=== PATIENT | female | born 1950 | race Caucasian/White ===

== ENCOUNTER 2020-09-20 07:03 | Day surgery (SDC) | payer OTHER ==
[~2020-09-20] VITALS: Ht 152.4 cm; Wt 65.9 kg
[~2020-09-20 07:03] MED LIST: AMLO5 PO; C COMPLEX1000 M1 PO; CALCIUM + D SO1 EACH; FAMO20; FISH1000; GLUC500; HYDCHL12.5; L-TYROSINE500 MG; LISHYD1012; LISI5; MAGCIT300; MULT50L; PANT40; Vitamin B Comple1 EA
--- NOTE | 2020-09-20 08:44 | NUR ---
09/20/20 0844 Alissa Nguyen History, Chart, Medications and Allergies reviewed before start of procedure. Patient confirms NPO status and agrees with scheduled surgery. 3-LEAD EKG REVIEWED WITH PHYSICIAN PRIOR TO START OF PROCEDURE. MONITOR INTACT WITH CONTINUOUS PULSE OXIMETRY AND INTERMITTENT BP. PATIENT DETERMINED TO BE ASA APPROPRIATE FOR PROPOFOL SEDATION PRIOR TO START OF PROCEDURE BY DR. Gilbert Block Placed AND REMOVED AT END OF CASE.
--- NOTE | 2020-09-20 09:47 | NUR ---
Discharge instructions reviewed with patient. Patient verbalizes understanding. Copy given to patient to take home. pt tolerating po fluids/solids
--- NOTE | 2020-09-20 10:01 | NUR ---
Discharged via wheelchair to private car for ride home.
== END 2020-09-20 10:02 | disposition home or self-care (01) ==
LOC: ORSCMMR 07:03 → ORD 08:30 → ORSCMMR 08:30
DX: R13.14 Dysphagia, pharyngoesophageal phase (principal); K21.9 Gastro-esophageal reflux disease without esophagitis; Z12.11 Encounter for screening for malignant neoplasm of colon; D12.3 Benign neoplasm of transverse colon; I10 Essential (primary) hypertension; Z79.899 Other long term (current) drug therapy
CPT/HCPCS: 88305; 88342; A9270; C1726; J0461; J2250; J2704; J7120

== ENCOUNTER 2021-09-16 05:51 | Emergency (ER) | payer OTHER ==
[~2021-09-16] VITALS: Ht 152.4 cm; Wt 64.9 kg
[2021-09-16 06:24] LABS: BASOPHILS ABSOLUTE AUTO 0.05 K/mm3 (0.00-0.23); BASOPHILS PERCENT AUTO 1 % (0-2); EOSINOPHILS ABSOLUTE AUTO 0.17 K/mm3 (0.00-0.68); EOSINOPHILS PERCENT AUTO 3 % (0-6); Hematocrit 46.3 % (33.0-51.0); Hemoglobin 15.6 g/dL (11.5-16.0); IMMATURE GRAN ABSOLUTE AUTO 0.04 K/mm3 (0.00-0.10); IMMATURE GRAN PERCENT AUTO 1 % (0-1); LYMPHOCYTES PERCENT AUTO 24 % (21-46); MONOCYTES ABSOLUTE AUTO 0.76 K/mm3 (0.16-1.47); MONOCYTES PERCENT AUTO 12 % (4-13); Mean Corpuscular HGB Conc 33.7 g/dL (31.5-36.5); Mean Corpuscular Volume 89 fL (80-100); Mean Platelet Volume 9.6 fL (9.1-12.4); NEUTROPHILS PERCENT AUTO 60 % (41-73); Platelet Count 297 K/mm3 (150-400); RDW Coefficient Variation 11.9 % (11.7-14.2); RDW Standard Deviation 38.7 fL (35.1-46.3); White Blood Cell Count 6.32 K/mm3 (4.00-11.30)
[2021-09-16 06:47] LABS: Albumin, Blood 3.5 g/dL (3.4-5.0); Albumin/Globulin Ratio 0.7 (0.8-1.8); Bilirubin, Total 0.5 mg/dL (0.1-1.0); Bun/Creatinine Ratio 11.5 (12.0-20.0); Calcium, Blood 9.6 mg/dL (8.5-10.1); Creatinine, Blood 0.61 mg/dL (0.40-1.00); Potassium, Blood 4.1 mmol/L (3.5-5.5); Total Protein, Blood 8.5 g/dL (6.4-8.2)
== END 2021-09-16 08:57 | disposition home or self-care (01) ==
LOC: ER 05:51
PROVIDERS: Student in an Organized Health Care Education/Training Program
DX: R07.89 Other chest pain (principal); I10 Essential (primary) hypertension; K21.9 Gastro-esophageal reflux disease without esophagitis; Z88.1 Allergy status to other antibiotic agents; Z88.0 Allergy status to penicillin; Z79.899 Other long term (current) drug therapy
CPT/HCPCS: 36415; 71045; 80053; 84484; 85025; 93005; 93010

== ENCOUNTER 2022-01-17 08:18 | Day surgery (SDC) | payer OTHER ==
[~2022-01-17] VITALS: Ht 152.4 cm; Wt 64.1 kg
[2022-01-17] MEDS ORDERED: CALCIUM 250-D1 EAC1 (08:42)
[2022-01-17] MEDS ORDERED: MAGNESIUM OXID500 MG (08:43)
--- NOTE | 2022-01-17 10:52 | NUR ---
01/17/22 1052 Meghana Covington RN NOTICED SLIGHT BLUE TINGE ON FINGERS, PT STATED NORMAL FOR HER WHEN SHE HASN'T BEEN MOVING AROUND. WARM PACK PROVIDED AND PULSE OX IN RANGE. RN CHECKED WITH PRE-OP RN AND VERIFIED THAT FINGERS WERE SAME PRIOR TO PROCEDURE. COLOR IMPROVED FOLLOWING WARM PACK AND REMOVAL OF COBAN ON WRIST. PT ADVISED TO REMOVE COBAN FROM FORMER IV SITE 1 HR FOLLOWING REMOVAL OF IV. 1 GRAM TYLENOL GIVEN FOR PAIN PER DR CARRION ORDERS.
== END 2022-01-17 10:43 | disposition home or self-care (01) ==
LOC: ORSCSDS 08:18
PROVIDERS: Student in an Organized Health Care Education/Training Program
PROC: 08RJ3JZ Replacement of Right Lens with Synthetic Substitute, Percutaneous Approach (ICD-10-PCS; principal; 2022-01-17 09:45)
DX: H25.11 Age-related nuclear cataract, right eye (principal); H21.81 Floppy iris syndrome; I10 Essential (primary) hypertension; K21.9 Gastro-esophageal reflux disease without esophagitis; Z79.899 Other long term (current) drug therapy
CPT/HCPCS: A9270; J2001; J2250; J7040; V2632

== ENCOUNTER 2022-01-31 08:21 | Day surgery (SDC) | payer OTHER ==
[~2022-01-31] VITALS: Ht 152.4 cm; Wt 63.9 kg
[~2022-01-31 08:21] MED LIST changes: +CALCIUM 250-D1 EAC1; +MAGNESIUM OXID500 MG
[2022-01-31] MEDS ORDERED: MAGNESIUM OXID500 MG PO (08:45)
[2022-01-31] MEDS ORDERED: CIDAFLEX TABLE1 EAC1 PO (08:47)
== END 2022-01-31 10:04 | disposition home or self-care (01) ==
LOC: ORSCSDS 08:21
PROVIDERS: Student in an Organized Health Care Education/Training Program
PROC: 08RK3JZ Replacement of Left Lens with Synthetic Substitute, Percutaneous Approach (ICD-10-PCS; principal; 2022-01-31 09:45)
DX: H25.12 Age-related nuclear cataract, left eye (principal); H21.81 Floppy iris syndrome; I10 Essential (primary) hypertension; E03.9 Hypothyroidism, unspecified; K21.9 Gastro-esophageal reflux disease without esophagitis; Z79.899 Other long term (current) drug therapy
CPT/HCPCS: J2001; J2250; J3010; J7040; V2632

== ENCOUNTER → 2023-02-04 | Outpatient (CLI) | payer OTHER ==
[~2023-02-04] MED LIST changes: +CIDAFLEX TABLE1 EAC1 PO; +MAGNESIUM OXID500 MG PO
== END ==
LOC: LAB 10:54 → LAB SHORT 10:54
DX: R05.9 Cough, unspecified (principal)
CPT/HCPCS: 87807

== ENCOUNTER 2024-03-13 05:14 | Day surgery (SDC) | payer OTHER ==
[~2024-03-13] VITALS: Wt 61.6 kg
[~2024-03-13 05:14] MED LIST changes: -CALCIUM 250-D1 EAC1; +CALCIUM 250-D1 EAC1 PO
[2024-03-13] MEDS ORDERED: Tocilizumab 200 MG in NS 90 ML IV SCH (06:00)
[2024-03-13] MEDS ORDERED: DiphenhydrAMINE HCL 25 MG Cap PO SCH (07:00)
[2024-03-13] MEDS ORDERED: Acetaminophen 325 MG TABLET PO SCH (07:00)
[2024-03-13 09:10] VITALS: BP 147/87; BP 165/63
[2024-03-13] MEDS ORDERED: [UNRECOGNIZED DRUG - CODE] PO (10:24)
[2024-03-13] MEDS ORDERED: Echinacea400 MG PO (10:24)
[2024-03-13] MEDS ORDERED: SPIR25 PO (10:25)
[2024-03-13] MEDS ORDERED: MULVITA PO (10:25)
[2024-03-13] MEDS ORDERED: LOSA50 PO (10:25)
[2024-03-13] MEDS ORDERED: HYDSUL200 PO (10:28)
[2024-03-13] MEDS ORDERED: ACTEMRA IV (10:28)
== END 2024-03-13 10:39 | disposition home or self-care (01) ==
LOC: ATC 05:14
DX: M05.79 Rheumatoid arthritis with rheumatoid factor of multiple sites without organ or systems involvement (principal); M34.0 Progressive systemic sclerosis; K21.9 Gastro-esophageal reflux disease without esophagitis; Z79.899 Other long term (current) drug therapy
CPT/HCPCS: 96365; A9270; J3262

== ENCOUNTER 2024-04-10 02:39 | Day surgery (SDC) | payer OTHER ==
[~2024-04-10] VITALS: Wt 61.0 kg
[~2024-04-10 02:39] MED LIST changes: +ACTEMRA IV; +Echinacea400 MG PO; +HYDSUL200 PO; +LOSA50 PO; +MULVITA PO; +SPIR25 PO; +[UNRECOGNIZED DRUG - CODE] PO
[2024-04-10] MEDS ORDERED: Tocilizumab 200 MG in NS 90 ML IV SCH (06:00)
[2024-04-10 14:35] VITALS: BP 150/62
[2024-04-10] MEDS ORDERED: Acetaminophen 325 MG TABLET PO SCH (15:10)
== END 2024-04-10 16:23 | disposition home or self-care (01) ==
LOC: ATC 02:39
DX: M05.79 Rheumatoid arthritis with rheumatoid factor of multiple sites without organ or systems involvement (principal); M34.0 Progressive systemic sclerosis; K21.9 Gastro-esophageal reflux disease without esophagitis; M35.00 Sjogren syndrome, unspecified; D84.9 Immunodeficiency, unspecified; Z79.899 Other long term (current) drug therapy
CPT/HCPCS: 96365; A9270; J3262

== ENCOUNTER 2024-05-08 01:04 | Day surgery (SDC) | payer OTHER ==
[~2024-05-08] VITALS: Wt 60.8 kg
[2024-05-08] MEDS ORDERED: NS IV SCH (06:00)
[2024-05-08] MEDS ORDERED: TOCILIZUMAB IV SCH (06:00)
[2024-05-08] MEDS ORDERED: Acetaminophen 325 MG TABLET PO SCH (07:05)
[2024-05-08] MEDS ORDERED: DiphenhydrAMINE HCL 25 MG Cap PO SCH (07:05)
[2024-05-08 14:02] VITALS: BP 161/56
[2024-05-08] MEDS ORDERED: Tocilizumab 200 MG in NS 90 ML IV SCH (14:25)
== END 2024-05-08 15:57 | disposition home or self-care (01) ==
LOC: ATC 01:04
DX: M05.79 Rheumatoid arthritis with rheumatoid factor of multiple sites without organ or systems involvement (principal); M34.0 Progressive systemic sclerosis; K21.9 Gastro-esophageal reflux disease without esophagitis; M41.9 Scoliosis, unspecified
CPT/HCPCS: 96365; J3262

== ENCOUNTER 2024-07-03 02:26 | Day surgery (SDC) | payer OTHER ==
[~2024-07-03] VITALS: Wt 60.3 kg
[2024-07-03] MEDS ORDERED: NS IV SCH (06:00)
[2024-07-03] MEDS ORDERED: TOCILIZUMAB IV SCH (06:00)
[2024-07-03] MEDS ORDERED: Acetaminophen 325 MG TABLET PO SCH (06:50)
[2024-07-03] MEDS ORDERED: DiphenhydrAMINE HCL 25 MG Cap PO SCH (06:50)
[2024-07-03 10:01] VITALS: BP 133/53
== END 2024-07-03 11:40 | disposition home or self-care (01) ==
LOC: ATC 02:26
DX: M05.79 Rheumatoid arthritis with rheumatoid factor of multiple sites without organ or systems involvement (principal); M34.0 Progressive systemic sclerosis
CPT/HCPCS: 96365; J3262

== ENCOUNTER 2024-07-31 00:33 | Day surgery (SDC) | payer OTHER ==
[~2024-07-31] VITALS: Wt 61.6 kg
[2024-07-31] MEDS ORDERED: NS IV SCH (06:00)
[2024-07-31] MEDS ORDERED: TOCILIZUMAB IV SCH (06:00)
[2024-07-31] MEDS ORDERED: Acetaminophen 325 MG TABLET PO SCH (06:50)
[2024-07-31] MEDS ORDERED: DiphenhydrAMINE HCL 25 MG Cap PO SCH (06:50)
[2024-07-31 13:22] VITALS: BP 144/63
== END 2024-07-31 15:00 | disposition home or self-care (01) ==
LOC: ATC 00:33
DX: M05.79 Rheumatoid arthritis with rheumatoid factor of multiple sites without organ or systems involvement (principal); M34.0 Progressive systemic sclerosis; K21.9 Gastro-esophageal reflux disease without esophagitis; Z79.899 Other long term (current) drug therapy
CPT/HCPCS: 96365; J3262

== ENCOUNTER 2024-09-01 00:44 | Day surgery (SDC) | payer OTHER ==
[~2024-09-01] VITALS: Wt 60.0 kg
[2024-09-01] MEDS ORDERED: SODIUM CHLORIDE IV SCH ×2 (06:00→13:50)
[2024-09-01] MEDS ORDERED: TOCILIZUMAB IV SCH ×2 (06:00→13:50)
[2024-09-01 13:36] VITALS: BP 117/89
== END 2024-09-01 15:30 | disposition home or self-care (01) ==
LOC: ATC 00:44
DX: M05.79 Rheumatoid arthritis with rheumatoid factor of multiple sites without organ or systems involvement (principal); M34.0 Progressive systemic sclerosis; I73.00 Raynaud's syndrome without gangrene; K21.9 Gastro-esophageal reflux disease without esophagitis; Z79.52 Long term (current) use of systemic steroids
CPT/HCPCS: 96365; A9270; J3262

== ENCOUNTER 2024-10-16 03:24 | Day surgery (SDC) | payer OTHER ==
[~2024-10-16] VITALS: Wt 61.4 kg
[2024-10-16] MEDS ORDERED: TOCILIZUMAB IV SCH ×2 (07:00→14:25)
[2024-10-16] MEDS ORDERED: SODIUM CHLORIDE IV SCH (07:00)
[2024-10-16 14:06] VITALS: BP 165/61
[2024-10-16] MEDS ORDERED: NS IV SCH (14:25)
[2024-10-16 14:55] VITALS: BP 148/59
[2024-10-17] MEDS ORDERED: METO10 PO (16:40)
== END 2024-10-16 15:56 | disposition home or self-care (01) ==
LOC: ATC 03:24
DX: M05.79 Rheumatoid arthritis with rheumatoid factor of multiple sites without organ or systems involvement (principal); M34.0 Progressive systemic sclerosis; M35.00 Sjogren syndrome, unspecified; K21.9 Gastro-esophageal reflux disease without esophagitis; Z79.899 Other long term (current) drug therapy
CPT/HCPCS: 96365; A9270; J3262

== ENCOUNTER 2024-10-17 12:13 | Emergency (ER) | payer OTHER ==
[~2024-10-17] VITALS: Ht 149.9 cm; Wt 59.9 kg
[2024-10-17 13:33] LABS: BASOPHILS ABSOLUTE AUTO 0.04 K/mm3 (0.00-0.23); BASOPHILS PERCENT AUTO 1 % (0-2); EOSINOPHILS ABSOLUTE AUTO 0.06 K/mm3 (0.00-0.68); EOSINOPHILS PERCENT AUTO 1 % (0-6); Hematocrit 38.3 % (33.0-51.0); Hemoglobin 13.4 g/dL (11.5-16.0); IMMATURE GRAN ABSOLUTE AUTO 0.03 K/mm3 (0.00-0.10); IMMATURE GRAN PERCENT AUTO 1 % (0-1); LYMPHOCYTES ABSOLUTE AUTO 0.92 K/mm3 (0.84-5.20); LYMPHOCYTES PERCENT AUTO 18 % (21-46); MONOCYTES ABSOLUTE AUTO 0.80 K/mm3 (0.16-1.47); MONOCYTES PERCENT AUTO 16 % (4-13); Mean Corpuscular HGB Conc 35.0 g/dL (31.5-36.5); Mean Corpuscular Volume 90 fL (80-100); NEUTROPHILS ABSOLUTE AUTO 3.30 K/mm3 (1.96-9.15); NEUTROPHILS PERCENT AUTO 64 % (41-73); NRBC ABSOLUTE 0.00 K/mm3 (0.00-0.02); NRBC Auto 0.0 /100 WBC (0.0-0.2); Platelet Count 366 K/mm3 (150-400); RDW Coefficient Variation 12.5 % (11.7-14.2); RDW Standard Deviation 40.5 fL (35.1-46.3)
[2024-10-17 13:38] LABS: Alanine Aminotransfer (ALT/SGP 16.0 U/L (12-78); Albumin, Blood 3.7 g/dL (3.4-5.0); Albumin/Globulin Ratio 0.9 (0.8-1.8); Anion Gap 7.0 mmol/L (3-11); Aspartate Aminotrans (AST/SGOT 24.0 U/L (12-37); Bilirubin, Total 0.4 mg/dL (0.1-1.0); Blood Urea Nitrogen 10.0 mg/dL (8-24); CO2, Blood 30.0 mmol/L (21-32); Calcium, Blood 9.5 mg/dL (8.5-10.1); Chloride, Blood 101.0 mmol/L (98-108); Creatinine, Blood 0.6 mg/dL (0.40-1.00); Globulin, Blood 4.1 g/dL (2.2-4.0); Glucose, Blood 105.0 mg/dL (70-99); Potassium, Blood 4.1 mmol/L (3.5-5.5); Sodium, Blood 134.0 mmol/L (136-145); Total Protein, Blood 7.8 g/dL (6.4-8.2)
[2024-10-17 14:00] VITALS: BP 157/60
[2024-10-17] MEDS ORDERED: NS 1,000 ML IV SCH (14:30)
[2024-10-17] MEDS ORDERED: Metoclopramide HCl 5MG / ML 2ML Vial IV ONE (14:35)
[2024-10-17] MEDS ORDERED: METO10 PO (16:40)
== END 2024-10-19 11:11 | disposition home or self-care (01) ==
LOC: ER 12:13
PROVIDERS: Student in an Organized Health Care Education/Training Program
DX: K22.4 Dyskinesia of esophagus (principal); Z79.899 Other long term (current) drug therapy; Z88.0 Allergy status to penicillin; Z88.1 Allergy status to other antibiotic agents; Z88.8 Allergy status to other drugs, medicaments and biological substances
CPT/HCPCS: 36415; 71046; 80053; 84484; 85025; 93005; 93010; 96361; 96374; 99285-25; J2765; J7030

== ENCOUNTER 2024-11-14 00:14 | Day surgery (SDC) | payer OTHER ==
[~2024-11-14] VITALS: Wt 60.9 kg
[~2024-11-14 00:14] MED LIST changes: +METO10 PO
[2024-11-14] MEDS ORDERED: TOCILIZUMAB IV SCH (06:00)
[2024-11-14] MEDS ORDERED: NS IV SCH (06:00)
[2024-11-14 14:00] VITALS: BP 150/56
== END 2024-11-14 15:37 | disposition home or self-care (01) ==
LOC: ATC 00:14
DX: M05.79 Rheumatoid arthritis with rheumatoid factor of multiple sites without organ or systems involvement (principal); M34.0 Progressive systemic sclerosis; M35.00 Sjogren syndrome, unspecified; K21.9 Gastro-esophageal reflux disease without esophagitis; I73.00 Raynaud's syndrome without gangrene; Z79.899 Other long term (current) drug therapy; I51.89 Other ill-defined heart diseases; I51.7 Cardiomegaly
CPT/HCPCS: 93306; 96365; A9270; J3262

== ENCOUNTER 2024-12-12 01:00 | Day surgery (SDC) | payer OTHER ==
[2024-12-12] MEDS ORDERED: NS IV SCH (06:00)
[2024-12-12] MEDS ORDERED: TOCILIZUMAB IV SCH (06:00)
[2024-12-12 13:35] VITALS: BP 139/57
== END 2024-12-12 15:18 | disposition home or self-care (01) ==
LOC: ATC 01:00
DX: M05.79 Rheumatoid arthritis with rheumatoid factor of multiple sites without organ or systems involvement (principal); M34.0 Progressive systemic sclerosis; K21.9 Gastro-esophageal reflux disease without esophagitis; I73.00 Raynaud's syndrome without gangrene; M35.00 Sjogren syndrome, unspecified
CPT/HCPCS: 96365; A9270; J3262

== ENCOUNTER 2025-01-09 01:22 | Day surgery (SDC) | payer OTHER ==
[~2025-01-09] VITALS: Wt 61.1 kg
[2025-01-09] MEDS ORDERED: TOCILIZUMAB IV SCH (06:00)
[2025-01-09] MEDS ORDERED: NS IV SCH (06:00)
[2025-01-09 13:33] VITALS: BP 152/65
--- NOTE | 2025-01-09 13:47 | NUR ---
Pt took tylenol at home prior to her appointment in the [facility] today.
== END 2025-01-09 15:09 | disposition home or self-care (01) ==
LOC: ATC 01:22
DX: M05.79 Rheumatoid arthritis with rheumatoid factor of multiple sites without organ or systems involvement (principal); M34.0 Progressive systemic sclerosis; K21.9 Gastro-esophageal reflux disease without esophagitis
CPT/HCPCS: 96365; 99211; A9270; J3262